=== PATIENT | male | born 1995 | race Two or more races ===

== ENCOUNTER 2017-03-26 01:43 | Emergency (ER) | payer OTHER ==
[2017-03-26 01:52] VITALS: RESP 16; TEMP 98.4
--- NOTE | 2017-03-26 02:04 | EDPHY ---
H & P Stated Complaint: r LEG INJURY Time Seen by Provider: 03/26/17 01:58 HPI/ROS: Chief complaint: Right ankle injury HPI: 21-year-old male hyperextended his right ankle when he was playing soccer. States that he went over and landed night. Has had pain in his lateral right ankle since then. Has not been able to really weightbear. No prior injuries. No numbness or tingling. No other injuries ROS: 10 point Review of Systems is negative except as noted in the HPI. Past medical history: None Medications: None Allergies: None Physical exam: General: Awake, alert, no acute distress Right leg: No hip pain, full range of motion without pain. No knee tenderness. No proximal fibular tenderness. Full range of motion of pain. Right ankle. No lateral medial malleolar tenderness. He has got some tenderness to the tendon cyst anterior to the lateral malleolus. No calcaneal tenderness. He has a normal Cerna's test. New midfoot tenderness. Sensations intact in all dermatomes. Cap refill is less than 2 seconds. He has 2+ DP and PT pulses. - Personal History Current Tetanus/Diphtheria Vaccine: Yes Current Tetanus Diphtheria and Acellular Pertussis (TDAP): Yes - Medical/Surgical History Hx Asthma: Yes Hx Chronic Respiratory Disease: No Hx Diabetes: No Hx Cardiac Disease: No Hx Renal Disease: No Hx Cirrhosis: No Hx Alcoholism: No Hx HIV/AIDS: No Hx Splenectomy or Spleen Trauma: No Other PMH: asthma, - Social History Smoking Status: Never smoked Constitutional: Initial Vital Signs Temperature (C) 36.9 C 03/26/17 01:49 Heart Rate 83 03/26/17 01:49 Respiratory Rate 16 03/26/17 01:49 Blood Pressure 122/68 H 03/26/17 01:49 O2 Sat (%) 95 03/26/17 01:49 O2 Delivery Mode Room Air Allergies/Adverse Reactions: Penicillins Allergy (Verified 03/26/17 01:49) Medical Decision Making - Diagnostics Imaging Results: Talus fracture of uncertain age. Interpreted by me Imaging: I viewed and interpreted images myself ED Course/Re-evaluation: Patient has a talus fracture of uncertain age. He does have a history of an injury in that area but cannot rule out this being an ulnar nerve fracture. Will place him in a splint. Follow up with Orthopedics in 3-4 days. Posterior splint inspected by me. Good immobility with normal perfusion. Departure - Departure Disposition: Home, Routine, Self-Care Clinical Impression: Talus fracture Condition: Good Instructions: Talar Fracture in Adults (ED) Additional Instructions: Follow up with Orthopedics in 3-4 days. Referrals: NONE *PRIMARY CARE P,. [Primary Care Provider] - As per Instructions Sushila Xiao MD [Medical Doctor] - As per Instructions
[2017-03-26 03:03] VITALS: BP 121/67; PULSE 67; O2SAT 97
== END 2017-03-26 03:02 | disposition home or self-care (01) ==
DX: S92.101A Unspecified fracture of right talus, initial encounter for closed fracture (principal); J45.909 Unspecified asthma, uncomplicated; X58.XXXA Exposure to other specified factors, initial encounter; Y93.66 Activity, soccer

== ENCOUNTER 2018-08-10 13:08 | Emergency (ER) | payer OTHER ==
--- NOTE | 2018-08-10 14:13 | EDPHY ---
H & P Smoking Status: Never smoked Time Seen by Provider: 08/10/18 13:56 HPI/ROS: CHIEF COMPLAINT: Chest pain HISTORY OF PRESENT ILLNESS: 22-year-old male presents to the emergency department complaining of chest pain. The patient states that he has had intermittent pain in his chest for last 3 days. He states when he drank his protein shake yesterday shortly after that he felt like he was having difficulty breathing more of a tight feeling in his chest. He has drank this same protein shake many times in the past without any problems. He denies substance abuse or alcohol. He has no known family history of heart disease. He does not feel short of breath. He states that when the pain was worse yesterday he had difficulty breathing and this lasted about 2 min and then resolved on its own. Denies abdominal pain. No nausea or vomiting. No diarrhea. No neck or back pain. REVIEW OF SYSTEMS: Constitutional: No fever, no chills. Eyes: No double or blurry vision. ENT: No sore throat. Respiratory: Shortness of breath now resolved, no cough Cardiac: chest pain. Gastrointestinal: No abdominal pain, vomiting or diarrhea. Genitourinary: No dysuria. Musculoskeletal: No neck or back pain. Skin: No rashes. Neurological: No headache. (Tamika Randhawa) Past Medical/Surgical History: Negative (Tamika Randhawa) Social History: [employer] student from [employer] (Tamika Randhawa) Physical Exam: General Appearance: Alert, no distress. 98% on room air. Afebrile and nontoxic-appearing. Eyes: Pupils equal and round. Extraocular motions are all intact. ENT: Mouth: Mucous membranes moist. Respiratory: No wheezing, rhonchi, or rales, lungs are clear to auscultation. Unable to recreate pain in his chest with palpation to the anterior aspect of the chest. No palpable crepitus or other bony abnormality. Cardiovascular: Regular rate and rhythm. Gastrointestinal: Abdomen is soft and nontender, no masses, no rebound or guarding, bowel sounds normal. Neurological: Alert and oriented x 3, cranial nerves II through XII grossly intact Skin: Warm and dry, no rashes. Musculoskeletal: Nontender to palpate along the cervical, thoracic or lumbar spine. Neck is supple. Extremities: Full range of motion and no peripheral edema. Psychiatric: Patient is oriented X 3, there is no agitation. (SydneeTamika Qing) Constitutional: Initial Vital Signs Temperature (C) 37 C 08/10/18 13:15 Heart Rate 68 08/10/18 13:15 Respiratory Rate 16 08/10/18 13:15 Blood Pressure 130/46 H 08/10/18 13:15 O2 Sat (%) 98 08/10/18 13:15 O2 Delivery Mode Room Air Allergies/Adverse Reactions: Penicillins Allergy (Unknown, Verified 08/10/18 13:24) as child Home Medications: Medication Instructions Recorded NK [No Known Home Meds] 08/10/18 Medical Decision Making - Diagnostics Imaging: I viewed and interpreted images myself ED Course/Re-evaluation: 22-year-old male presents to the emergency department with chest pain. Laboratory studies including troponin D-dimer and CBC and chemistries are all within normal limits. EKG reveals normal sinus rhythm. Chest x-rays unremarkable. The case was discussed with Dr. Kennedy Valdes, secondary supervising physician, who did not directly evaluate the patient but agrees with treatment plan. The patient was feeling better. Chest pain has resolved. He feels comfortable being discharged home. (Tamika Randhawa) I did not see this patient while he was in the emergency department. However his care was discussed with the PA while the patient was in the department. I agree with treatment plan and management (Kennedy Valdes) Differential Diagnosis: Chest pain including but not limited to myocardial ischemia, pulmonary embolus, chest wall pain, pleural inflammation and pulmonary infectious causes. (Tamika Randhawa) - Data Points Laboratory Results: Laboratory Results 08/10/18 14:16 08/10/18 14:16 Point of Care Test Results: Chemistry 08/10/18 14:41 POC Troponin I 0.01 ng/mL ng/mL (0.00-0.08) Departure - Departure Disposition: Home, Routine, Self-Care Clinical Impression: Chest pain Condition: Good Instructions: Chest Pain (ED) Additional Instructions: Diet and activity as tolerated. Return to the emergency department if you develop recurring pain in your chest, shortness of breath, or if you feel worse in any way. Referrals: Saurav Reed MD [Medical Doctor] - As per Instructions
[2018-08-10 14:25] LABS: PLATELET COUNT 241 10^3/uL (150-400)
--- NOTE | 2018-08-10 15:16 | CPEKG ---
Test Reason : OPEN Blood Pressure : / mmHG Vent. Rate : 073 BPM Atrial Rate : 079 BPM P-R Int : 204 ms QRS Dur : 103 ms QT Int : 384 ms P-R-T Axes : 076 077 052 degrees QTc Int : 424 ms Sinus arrhythmia Borderline prolonged ME interval ST elev, probable normal early repol pattern Confirmed by Kennedy Valdes ([id number]) on 08/10/2018 3:15:26 PM Referred By: Confirmed By:Kennedy Valdes
[2018-08-10 15:21] VITALS: BP 142/81
== END 2018-08-10 15:52 | disposition home or self-care (01) ==
DX: R07.9 Chest pain, unspecified (principal)
CPT/HCPCS: 84484-PO

== ENCOUNTER 2019-01-11 12:49 | Emergency (ER) | payer OTHER ==
[2019-01-11 12:57] VITALS: BP 142/70
--- NOTE | 2019-01-11 13:07 | EDPHY ---
H & P Stated Complaint: twisted left ankle playing soccer yesterday Time Seen by Provider: 01/11/19 13:05 HPI/ROS: Chief Complaint: Left ankle sprain HPI: The patient presents to the ED with complaints of left ankle injury that occurred yesterday while he was playing soccer. The patient had an inversion- type injury. He has a history of chronic sprain some soccer in the past. He denies any acute numbness or weakness. He denies additional acute complaints. REVIEW OF SYSTEMS: Neuro: no headache, numbness, weakness Musculoskeletal: as above Skin: no abrasion or lacerations Source: Patient Exam Limitations: No limitations - Personal History Current Tetanus/Diphtheria Vaccine: Unsure Current Tetanus Diphtheria and Acellular Pertussis (TDAP): Unsure - Medical/Surgical History Hx Asthma: Yes Hx Chronic Respiratory Disease: No Hx Diabetes: No Hx Cardiac Disease: No Hx Renal Disease: No Hx Cirrhosis: No Hx Alcoholism: No Hx HIV/AIDS: No Hx Splenectomy or Spleen Trauma: No Other PMH: asthma, inguinal hernia surgery x2, tonsilectomy, appendectomy - Social History Smoking Status: Never smoked - Physical Exam Exam: General appearance: alert no distress Left ankle: There is swelling and tenderness over the lateral malleolus. Ankle joint is stable and there is no tenderness over the Achilles tendon. The foot is nontender without swelling. Neurologic exam: The patient has normal sensation and motor function distal to the injury. Vascular exam: Normal pulses and capillary refill in the foot DIFFERENTIAL DIAGNOSIS: After history and physical exam differential diagnosis was considered for ankle injury including sprain, fracture, dislocation and soft tissue injury. Constitutional: Initial Vital Signs Temperature (C) 36.9 C 01/11/19 12:52 Heart Rate 81 01/11/19 12:52 Respiratory Rate 16 01/11/19 12:52 Blood Pressure 142/70 H 01/11/19 12:52 O2 Sat (%) 97 01/11/19 12:52 O2 Delivery Mode Room Air Allergies/Adverse Reactions: Penicillins Allergy (Unknown, Verified 01/11/19 12:57) as child menthol [From Icy Hot] Allergy (Verified 01/11/19 12:57) methyl salicylate [From Icy Hot] Allergy (Verified 01/11/19 12:57) Home Medications: Medication Instructions Recorded NK [No Known Home Meds] 08/10/18 Medical Decision Making - Diagnostics Imaging Results: Left ankle x-ray: Images reviewed by myself: Impression negative for acute fracture. ED Course/Re-evaluation: Patient presents to the ED with a left ankle sprain. The patient does have a Varma boot at home to wear. The patient has been instructed to follow up with our on-call orthopedic surgeon Dr. Virgen in 7-10 days for any symptoms which persists as this may be the sign of an injury not noted on the x-ray today. Departure - Departure Disposition: Home, Routine, Self-Care Clinical Impression: Left ankle sprain Condition: Good Instructions: Ankle Sprain (ED) Additional Instructions: 1. Take Ibuprofen or Motrin 600 mg by mouth three times a day. 2. Please follow up with the orthopedic surgeon, Dr. Virgen, you have been referred to for any pain which persists past 5-7 days as this may be the sign of an injury not noted on the x-ray today. 3. Please wear the ankle brace you have at home. Referrals: Elisa Virgen MD [Medical Doctor] - As per Instructions
== END 2019-01-11 13:52 | disposition home or self-care (01) ==
DX: S93.402A Sprain of unspecified ligament of left ankle, initial encounter (principal); Y93.66 Activity, soccer; Y92.9 Unspecified place or not applicable; Y99.9 Unspecified external cause status
CPT/HCPCS: L4386

== ENCOUNTER 2019-03-03 21:59 | Emergency (ER) | payer OTHER ==
--- NOTE | 2019-03-03 22:11 | EDPHY ---
H & P Stated Complaint: severe headache, neck pain Time Seen by Provider: 03/03/19 22:11 HPI/ROS: HPI CHIEF COMPLAINT: Headache. HISTORY OF PRESENT ILLNESS: Patient is a 23-year-old male, otherwise healthy, presents emergency room with a headache. He reports over the last 2 days he has had gradual onset right-sided frontal throbbing headache. He does radiate across the right side of his forehead down the right side of his scalp down the right side of his neck. No stiff neck, no fever. No vomiting. He does report to me that used to have headaches when he was younger even going to the ER for this he has not had a headache in a while he states 3 weeks ago he had another headache. He is not sure if there migraines. Denies any trauma. This was not thunderclap headache. This is not the worst headache of his life. However it has been persistent for 2 days he also reports that he took ibuprofen without much relief. He states he has quit his this week in school and that due to the headache he has increasing pain unable to study for the quit is. He denies any focal weakness, denies any numbness or tingling. Denies fever, denies chest pain or shortness of breath Past Medical History: No significant medical history, does have remote history of headaches. Past Surgical History: No recent surgery Social History: [employer] student, denies drugs alcohol tobacco. From the Family History: Noncontributory ROS REVIEW OF SYSTEMS: 10 Systems were reviewed and negative with the exception of the elements mentioned in the history of present illness. Exam Constitutional triage nursing summary reviewed, vital signs reviewed, awake/ alert. Eyes normal conjunctivae and sclera, EOMI, PERRLA. HENT normal inspection, atraumatic, moist mucus membranes, no epistaxis, neck supple/ no meningismus, no raccoon eyes. Respiratory clear to auscultation bilaterally, normal breath sounds, no respiratory distress, no wheezing. Cardiovascular rate normal, regular rhythm, no murmur, no edema, distal pulses normal. Gastrointestinal soft, non-tender, no rebound, no guarding, normal bowel sounds, no distension, no pulsatile mass. Genitourinary no CVA tenderness. Musculoskeletal no midline vertebral tenderness, full range of motion, no calf swelling, no tenderness of extremities, no meningismus, good pulses, neurovascularly intact. Skin pink, warm, & dry, no rash, skin atraumatic. Neurologic nonfocal neurological exam, awake, alert and oriented x 3, AAOx3, moves all 4 extremities equally, motor intact, sensory intact, CN II-XII intact , normal cerebellar, normal vision, normal speech. Psychiatric normal mood/affect. Heme/Lymph/Immune no lymphadenopathy. Differential Diagnosis: Includes but is not limited to in a particular order migraine headache, tension headache, cluster headache, intracranial bleed, brain tumor Medical Decision Making: Plan for this patient will treat for migraine headache given constellation of symptoms, he appears well he has a normal neurological exam here, nontoxic on exam, cranial nerves are intact. Plan for CT scan head without contrast, and migraine cocktail and re-evaluate. No stiff neck on exam. Re-evaluation: CT scan head without contrast negative for acute intracranial abnormality called to me by Dr. Garza. 1:36 a.m. patient re-evaluated this time resting comfortably his headache is completely resolved with migraine cocktail. He denies any complaints. I did re -evaluate him is headache is gone. His neurological exam is unremarkable. No focal neuro deficit. He would like to go home. He has not any vomiting. Received a migraine cocktail here in emergency room is much improved. Cranial nerves intact Normal neuro exam. We discussed return precautions he understands return emergency room if develops worsening headache, fever, vomiting, not doing well. I think meningitis encephalitis or intracranial bleed is very unlikely given history, physical exam review of systems. Source: Patient - Personal History Current Tetanus Diphtheria and Acellular Pertussis (TDAP): Unsure - Medical/Surgical History Hx Asthma: Yes Hx Chronic Respiratory Disease: No Hx Diabetes: No Hx Cardiac Disease: No Hx Renal Disease: No Hx Cirrhosis: No Hx Alcoholism: No Hx HIV/AIDS: No Hx Splenectomy or Spleen Trauma: No Other PMH: asthma, inguinal hernia surgery x2, tonsilectomy, appendectomy - Social History Smoking Status: Never smoked Constitutional: Initial Vital Signs Temperature (C) 36.9 C 03/03/19 22:03 Heart Rate 90 03/03/19 22:03 Respiratory Rate 20 03/03/19 22:03 Blood Pressure 156/91 H 03/03/19 22:03 O2 Sat (%) 98 03/03/19 22:03 O2 Delivery Mode Room Air O2 (L/minute) 0 Allergies/Adverse Reactions: Penicillins Allergy (Unknown, Verified 03/03/19 22:03) as child menthol [From Icy Hot] Allergy (Verified 03/03/19 22:03) methyl salicylate [From Icy Hot] Allergy (Verified 03/03/19 22:03) Home Medications: Medication Instructions Recorded Acet/Caffeine/Buta Fioricet 1 each PO Q6 #20 tab 03/03/19 [Fioricet] Medical Decision Making - Diagnostics Imaging Results: Imaging Impressions Head CT 03/03/19 22:17 Impression: Normal CT of the head. Specifically, a headache source is not identified. Results called and discussed with Duglas Morales MD on 03/03/2019 at 2257 hours - Data Points Laboratory Results: Laboratory Results 03/03/19 22:19 03/03/19 22:19 03/03/19 03/03/19 22:19 22:19 WBC 7.06 10^3/uL 10^3/uL (3.80-9.50) RBC 5.60 10^6/uL 10^6/uL (4.40-6.38) Hgb 15.8 g/dL g/dL (13.7-17.5) Hct 47.8 % % (40.0-51.0) MCV 85.4 fL fL (81.5-99.8) MCH 28.2 pg pg (27.9-34.1) MCHC 33.1 g/dL g/dL (32.4-36.7) RDW 12.8 % % (11.5-15.2) Plt Count 239 10^3/uL 10^3/uL (150-400) MPV 10.0 fL fL (8.7-11.7) Neut % (Auto) 56.0 % % (39.3-74.2) Lymph % (Auto) 30.9 % % (15.0-45.0) [place] % (Auto) 7.9 % % (4.5-13.0) Eos % (Auto) 4.4 % % (0.6-7.6) Baso % (Auto) 0.7 % % (0.3-1.7) Nucleat RBC Rel Count 0.0 % % (0.0-0.2) Absolute Neuts (auto) 3.95 10^3/uL 10^3/uL (1.70-6.50) Absolute Lymphs (auto) 2.18 10^3/uL 10^3/uL (1.00-3.00) Absolute Monos (auto) 0.56 10^3/uL 10^3/uL (0.30-0.80) Absolute Eos (auto) 0.31 10^3/uL 10^3/uL (0.03-0.40) Absolute Basos (auto) 0.05 10^3/uL 10^3/uL (0.02-0.10) Absolute Nucleated RBC 0.00 10^3/uL 10^3/uL (0-0.01) Immature Gran % 0.1 % % (0.0-1.1) Immature Gran # 0.01 10^3/uL 10^3/uL (0.00-0.10) Sodium 139 mEq/L mEq/L (135-145) Potassium 4.1 mEq/L mEq/L (3.5-5.2) Chloride 100 mEq/L mEq/L (97-110) Carbon Dioxide 27 mEq/l mEq/l (22-31) Anion Gap 12 mEq/L mEq/L (6-14) BUN 29 mg/dL H mg/dL (7-23) Creatinine 1.1 mg/dL mg/dL (0.7-1.3) Estimated GFR > 60 Glucose 93 mg/dL mg/dL (70-100) Calcium 9.7 mg/dL mg/dL (8.5-10.4) Medications Given: Discontinued Medications Dexamethasone (Decadron Injection) 10 mg IVP EDNOW ONE Stop: 03/03/19 22:17 Last Admin: 03/03/19 22:27 Dose: 10 mg Diphenhydramine HCl (Benadryl Injection) 50 mg IVP EDNOW ONE Stop: 03/03/19 22:17 Last Admin: 03/03/19 22:24 Dose: 50 mg Sodium Chloride (Ns) 1,000 mls @ 0 mls/hr IV ONCE ONE; Wide Open PRN Reason: Protocol Stop: 03/03/19 22:17 Last Admin: 03/03/19 22:23 Dose: 1,000 mls Metoclopramide HCl (Reglan Injection) 10 mg IVP EDNOW ONE Stop: 03/03/19 22:17 Last Admin: 03/03/19 22:32 Dose: 10 mg Departure - Departure Disposition: Home, Routine, Self-Care Clinical Impression: Headache Condition: Good Instructions: Acute Headache (ED) Additional Instructions: 1. Rest and stay well-hydrated. 2. Return to the Emergency Room if you have worsening symptoms, this includes, vomiting, fever, abdominal pain or not doing well. 3. Advance your diet slowly. Referrals: NONE *PRIMARY CARE P,. [Primary Care Provider] - As per Instructions [facility] [Clinic] - As per Instructions Prescriptions: Acet/Caffeine/Buta Fioricet [Fioricet] 1 each PO Q6 #20 tab
[2019-03-03] MEDS ORDERED: DEXAMETHASONE 10 MG/ML VIAL IVP ONE (22:16)
[2019-03-03] MEDS ORDERED: NS 1,000 ML IV ONE (22:16)
[2019-03-03] MEDS ORDERED: METOCLOPRAMIDE 10 MG/2 ML VIAL IVP ONE (22:16)
[2019-03-03 22:27] LABS: PLATELET COUNT 239 10^3/uL (150-400)
[2019-03-04 01:52] VITALS: BP 114/69
== END 2019-03-04 01:55 | disposition home or self-care (01) ==
DX: R51 Headache (principal); E86.9 Volume depletion, unspecified
CPT/HCPCS: 96374; J1100; J1200; J2765

== ENCOUNTER 2019-03-05 09:33 | Emergency (ER) | payer OTHER ==
--- NOTE | 2019-03-05 09:48 | EDPHY ---
H & P Stated Complaint: r ankle inj/soccer yesterday Time Seen by Provider: 03/05/19 09:41 HPI/ROS: Chief Complaint: Right ankle injury HPI: 23-year-old male was playing soccer last night when he sustained an inversion injury to his right ankle. He has had pain and swelling in his lateral ankle since that time. He is able to weight bear with pain. He has injured that ankle several times in the past. No numbness or weakness. No other injuries. No knee pain. Has had some moderate swelling. No redness. ROS: 10 systems were reviewed and were negative except those elements noted in the HPI. PMH: Migraine headaches, asthma Social History: No smoking, no alcohol, no recreational drug use Family History: non-contributory Physical Exam: Gen: Awake, Alert, No Distress Ext: Right hip, nontender, full range of motion without pain Right knee: Nontender, full range of motion of pain Right ankle: Patient has no medial tenderness or deformity. He has tenderness and swelling over the lateral malleolus with tenderness over the lateral malleolus and at the talofibular ligament. There is moderate swelling. There is no erythema. He has decreased range of motion secondary to pain. Right foot: Nontender, full range of motion. Capillary refills less than 2 sec. 2+ dorsalis pedis pulses. Sensation intact in all dermatomes. Skin: no rash Neuro: CN II-XII intact, Sensation grossly intact, Strength 5/5 in bilateral upper and lower extremities - Personal History Current Tetanus Diphtheria and Acellular Pertussis (TDAP): Unsure - Medical/Surgical History Hx Asthma: Yes Hx Chronic Respiratory Disease: No Hx Diabetes: No Hx Cardiac Disease: No Hx Renal Disease: No Hx Cirrhosis: No Hx Alcoholism: No Hx HIV/AIDS: No Hx Splenectomy or Spleen Trauma: No Other PMH: asthma, inguinal hernia surgery x2, tonsilectomy, appendectomy migraines - Social History Smoking Status: Never smoked Constitutional: Initial Vital Signs Temperature (C) 37.3 C 03/05/19 09:37 Heart Rate 80 03/05/19 09:37 Respiratory Rate 18 03/05/19 09:37 Blood Pressure 142/75 H 03/05/19 09:37 O2 Sat (%) 95 03/05/19 09:37 O2 Delivery Mode Room Air Allergies/Adverse Reactions: Penicillins Allergy (Unknown, Verified 03/05/19 09:37) as child menthol [From Icy Hot] Allergy (Verified 03/05/19 09:37) methyl salicylate [From Icy Hot] Allergy (Verified 03/05/19 09:37) Home Medications: Medication Instructions Recorded Acet/Caffeine/Buta Fioricet 1 each PO Q6 #20 tab 03/03/19 [Fioricet] Medical Decision Making ED Course/Re-evaluation: Patient has a and ankle sprain. Been placed in a Velcro splint. Good immobility and is comfortable. Patient will be discharged with follow up with orthopedic surgery. - Data Points Medications Given: Discontinued Medications Ibuprofen (Motrin) 600 mg PO EDNOW ONE Stop: 03/05/19 10:54 Last Admin: 03/05/19 10:57 Dose: 600 mg Departure - Departure Disposition: Home, Routine, Self-Care Clinical Impression: Ankle sprain Condition: Good Instructions: Ankle Sprain (ED), Crutch Instructions (ED), Ankle Stirrup Splint (ED) Additional Instructions: Take ibuprofen, 600 mg every 8 hr. You may alternate with acetaminophen, 1000 mg every 8 hr. Follow up with orthopedist in 4-5 days for re-evaluation. Referrals: Daivd Bah MD [Medical Doctor] - As per Instructions
[2019-03-05] MEDS ORDERED: IBUPROFEN 600 MG TAB PO ONE (10:53)
[2019-03-05 11:03] VITALS: BP 138/80
== END 2019-03-05 11:05 | disposition home or self-care (01) ==
DX: S93.401A Sprain of unspecified ligament of right ankle, initial encounter (principal); X50.9XXA Other and unspecified overexertion or strenuous movements or postures, initial encounter; Y93.66 Activity, soccer; Y99.9 Unspecified external cause status
CPT/HCPCS: L4350